=== PATIENT | male | born 1980 | race African-American/Black ===

== ENCOUNTER 2024-08-19 09:34 | Emergency (ER) | payer SELFPAY ==
[~2024-08-19] VITALS: Ht 175.3 cm; Wt 105.3 kg
[2024-08-19 09:44] VITALS: PULSE 104; RESP 18; TEMP 97.5
[2024-08-19] MEDS ORDERED: LOSARTAN POTASS25 MG PO (10:13)
[2024-08-19] MEDS ORDERED: CARVEDILOL6.25 MG PO (10:13)
[2024-08-19] MEDS ORDERED: FUROSEMIDE40 MG PO (10:13)
[2024-08-19] MEDS: FUROSEMIDE INJ 10 MG/ML 4 ML VIAL IV ONE (10:47)
[2024-08-19] MEDS: NITROGLYCERIN 2% OINT 1 GM PKT TOP ONE (10:47)
[2024-08-19] MEDS: ASPIRIN 81 MG CHEW TAB PO ONE (10:47)
[2024-08-19] MEDS: HYDRALAZINE HCL 20 MG/ML VIAL IV ONE (10:47)
[2024-08-19] MEDS ORDERED: CEFDINIR300 MG PO (11:17)
[2024-08-19 11:41] VITALS: BP 160/116; PULSE 105; RESP 18; TEMP 97.6; O2SAT 97
== END 2024-08-19 11:42 | disposition home or self-care (01) ==
LOC: FSED 09:56
DX: R06.02 Shortness of breath (principal); I50.9 Heart failure, unspecified; I16.1 Hypertensive emergency; R00.2 Palpitations; R60.9 Edema, unspecified; N45.1 Epididymitis; R94.31 Abnormal electrocardiogram [ECG] [EKG]
CPT/HCPCS: 71046; 80053; 81003; 82553; 83880; 84484; 85025; 93005; 99283; J0360; J1940